=== PATIENT | female | born 2000 | race Two or more races ===

== ENCOUNTER 2024-07-24 05:39 | Emergency (ER) | payer OTHER ==
[~2024-07-24] VITALS: Ht 160 cm; Wt 52.3 kg
[2024-07-24] MEDS: diphenhdrAMINE HCL 50 MG/1 ML VL IM ONE (06:10)
--- NOTE | 2024-07-24 06:10 | ED.PDOC ---
Altered Mental Status HPI Comments 23-year-old female brought in by EMS with unknown PMHx presents with a chief complaint of ALOC secondary to alcohol use. Per EMS, patient was causing a disturbance at home and neighbors called 911. Patient is behaving erratic and had to be restrained by EMS. Patient is yelling out profanities and tried to bite EMS so a spit mask was placed on patient. Patient is uncooperative at this time and combative. No further medical information was not able to be obtained. No other symptoms or modifying factors present at this time. Chief Complaint: ETOH Time Seen by MD: 06:02 Reviewed Notes: Medications, Allergies Information Source: Emergency Med Personnel Mode of Arrival: EMS Severity: Moderate, Unable to Care for Self Timing: Hours Duration: Since onset Prehospital treatment: Restraints Quality: Change in Behavior Recent: None History of: Other (ALCOHOL USE) Past Medical History PAST MEDICAL HISTORY: Unknown, Unobtainable Surgical History: Unknown, Unobtainable LAY OUT CARPENTER History: Unknown, Unobtainable Family History Family History: Unknown, Unobtainable Social History Smoker: Unknown, Unobtainable Alcohol: Heavy Drugs: Unknown, Unobtainable Lives In: Home Constitutional: denies: chills, diaphoresis, fatigue, fever, malaise, sweats, weakness, others EENTM: denies: blurred vision, double vision, ear bleeding, ear discharge, ear drainage, ear pain, ear ringing, eye pain, eye redness, hearing loss, mouth pain, mouth swelling, nasal discharge, nose bleeding, nose congestion, nose pain, photophobia, tearing, throat pain, throat swelling, voice changes, others Respiratory: denies: cough, hemoptysis, orthopnea, SOB at rest, shortness of breath, SOB with excertion, stridor, wheezing, others Cardiovascular: denies: chest pain, dizzy spells, diaphoresis, Dyspnea on exertion, edema, irregular heart beat, left arm pain, lightheadedness, palpitations, PND, syncope, others Gastrointestinal: denies: abdomen distended, abdominal pain, blood streaked bowels, constipated, diarrhea, dysphagia, difficulty swallowing, hematemesis, melena, nausea, poor appetite, poor fluid intake, rectal bleeding, rectal pain, vomiting, others Genitourinary: denies: abnormal vagina bleeding, burning, dyspareunia, dysuria, flank pain, frequency, hematuria, incontinence, pain, , vagina discharge, urgency, others Neurological: denies: dizziness, fainting, headache, left sided numbness, left sided weakness, numbness, paresthesia, pre-existing deficit, right sided numbness, right sided weakness, seizure, speech problems, tingling, tremors, weakness, others Musculoskeletal: denies: back pain, gout, joint pain, joint swelling, muscle pain, muscle stiffness, neck pain, others Integumetry: denies: bruises, change in color, change in hair/nails, dryness, laceration, lesions, lumps, rash, wounds, others Allergic/Immunocompromised: denies: Difficulty Healing, Frequent Infections, Hives, Itching, others Hematologic/Lymphatic: denies: anemia, blood clots, easy bleeding, easy bruising, swollen glands, others Endocrine: denies: excessive hunger, excessive sweating, excessive thirst, excessive urination, flushing, intolerance to cold, intolerance to heat, unexp lained weight gain, unexplained weight loss, others Psychiatric: denies: anxiety, bipolar disorder, depression, hopeless, panic disorder, schizophrenia, sleepless, suicidal, others Unable to Obtain due to: Altered Mental Status (SECONDARY TO ALCOHOL USE) All Other Systems: Reviewed and Negative Physical Exam General Appearance: No Apparent Distress, Normal HEENT: Normal ENT Inspection, Pharynx Normal, TMs Normal Neck: Full Range of Motion, Non-Tender, Normal, Normal Inspection Respiratory: Chest Non-Tender, Lungs Clear, No Accessory Muscle Use, No Respiratory Distress, Normal Breath Sounds Cardiovascular: No Edema, No JVD, No Murmur, No Gallop, Normal Peripheral Pulses, Regular Rate/Rhythm Breast Exam: Deferred Gastrointestinal: No Organomegaly, Non Tender, No Pulsatile Mass, Normal Bowel Sounds, Soft Genitalia: Deferred Pelvic: Deferred Rectal: Deferred Extremities: No calf tenderness, Normal capillary refill, Normal range of motion, No pedal edema, Tender (bilateral hands with multiple bruises, but the left dorsal hand is swollen and tender, with bruising. no redness. no deformities) Musculoskeletal : Apperance: Normal Neurologic: Alert, armed security guard II-XII nml as Tested, No Motor Deficits, Normal Affect, Normal Mood, No Sensory Deficits Cerebellar Function: Normal Reflexes: Normal Skin: Dry, Normal Color, Warm Lymphatic: No Adenopathy Was a procedure done? Was a procedure done?: No Differential Diagnosis (ALOC) Differential Diagnosis: Dehydration, Hypoglycemia, DKA, Hypoxemia, Seizure, Closed Head Injury, Drug Overdose, ETOH Intoxication X-Ray, Labs, Meds, VS Vital Signs Date Time Temp Pulse Resp B/P (MAP) Pulse Ox O2 Delivery O2 Flow Rate FiO2 07/24/24 14:00 75 18 126/98 (107) 95 07/24/24 12:00 68 21 101/59 (73) 97 07/24/24 10:30 50 14 95 Room Air* 0 21 07/24/24 09:58 51 14 109/73 (85) 96 07/24/24 07:15 52 13 96 07/24/24 05:45 98.2 102 24 150/76 (100) 98 Lab Test 07/24/24 12:45 07/24/24 09:29 07/24/24 06:24 Range/Units Urine Color Light-yellow Yellow Urine Clarity Ex.turbid Clear Urine pH 5.5 5.0-9.0 Urine Specific Sharon 1.023 1.001-1.035 Urine Protein Trace H Negative Urine Ketones 1+ H Negative Urine Blood 3+ H Negative /uL Urine Nitrite Negative Negative Urine Bilirubin Negative Negative Urine Urobilinogen Normal Negative mg/dL Urine Leukocyte Esterase Negative Negative /uL Urine RBC 3 0 - 4 /hpf Urine WBC None seen 0 - 5 /hpf Urine Squamous Epithelial Cells Few <5 /hpf Urine Bacteria None seen None Seen /hpf Urine Mucus Few None Seen Urine Glucose Normal Normal mg/dL Urine Opiates Screen Neg NEGATIVE Urine Fentanyl Screen Neg NEGATIVE Urine Barbiturates Screen Neg NEGATIVE Urine Phencyclidine Screen Neg NEGATIVE Urine Amphetamines Screen Neg NEGATIVE Urine Benzodiazepines Screen Neg NEGATIVE Urine Cocaine Screen Pos NEGATIVE Urine Cannabinoids Screen Pos NEGATIVE White Blood Count 17.3 H 18.0 H 4.4-10.8 10^3/uL Red Blood Count 3.97 L 4.18 4.0-5.20 10^6/uL Hemoglobin 12.8 13.2 12.2-16.2 g/dL Hematocrit 38.1 39.3 36.0-46.0 % Mean Corpuscular Volume 95.8 94.2 80.0-100.0 fL Mean Corpuscular Hemoglobin 32.3 H 31.5 28.0-32.0 pg Mean Corpuscular Hemoglobin Concent 33.7 33.5 32.0-36.0 g/dL Red Cell Distribution Width 12.5 12.4 11.8-14.3 % Platelet Count 297 327 140-450 10^3/uL Mean Platelet Volume 8.6 8.6 6.9-10.8 fL Neutrophils (%) (Auto) 87.7 H 92.1 H 37.0-80.0 % Lymphocytes (%) (Auto) 8.1 L 4.2 L 10.0-50.0 % Monocytes (%) (Auto) 4.1 3.5 0.0-12.0 % Eosinophils (%) (Auto) 0.0 0.0 0.0-7.0 % Basophils (%) (Auto) 0.1 0.2 0.0-2.0 % Neutrophils # (Auto) 15.2 H 16.6 H 1.6-8.6 10 ^3/uL Lymphocytes # (Auto) 1.4 0.8 0.4-5.4 10 ^3/uL Monocytes # (Auto) 0.7 0.6 0-1.3 10 ^3/uL Eosinophils # (Auto) 0 0 0-0.8 10 ^3/uL Basophils # (Auto) 0 0 0-0.2 10 ^3/uL Nucleated Red Blood Cells 0.0 0.0 % Sodium Level 145 136-145 mmol/L Potassium Level 3.5 3.5-5.1 mmol/L Chloride Level 108 H 98-107 mmol/L Carbon Dioxide Level 19 L 20-31 mmol/L Anion Gap 18 H 5-15 Blood Urea Nitrogen 15 9-23 mg/dL Creatinine 1.01 0.550-1.02 mg/dL Glomerular Filtration Rate Calc 81 >90 mL/min BUN/Creatinine Ratio 14.9 10.0-20.0 Serum Glucose 77 74-106 mg/dL Calcium Level 10.4 8.7-10.4 mg/dL Beta HCG, Quantitative 0.3 L 1.5-4.2 mIU/mL Plasma/Serum Blood Alcohol 178.2 H <10 mg/dL Current Medications Medications (Trade) Dose Ordered Sig/Cisco Route Start Time Stop Time Status Last Admin Lorazepam (Ativan Inj) 2 mg ONCE ONCE IM 07/24/24 06:00 07/24/24 06:01 DC 07/24/24 06:12 Haloperidol Lactate (Haldol) 5 mg ONCE ONCE IM 07/24/24 06:00 07/24/24 06:01 DC 07/24/24 06:11 Diphenhydramine HCl (Benadryl Injection) 50 mg ONCE ONCE IM 07/24/24 06:00 07/24/24 06:01 DC 07/24/24 06:10 Sodium Chloride 1,000 ml @ 1,000 mls/hr Q1H ONCE IV 07/24/24 07:30 07/24/24 08:29 DC 07/24/24 11:03 Time of 1ST Reevaluation: 06:32 Reevaluation 1ST: Unchanged Time of 2ND Reevaluation: 12:35 Reevaluation 2ND: Improved Time of 3RD Reevaluation: 12:35 Reevaluation 3RD: Improved (pt ia alert, calm awake, having a sandwich, sitting up and will call family to pick her up) Patient Education/Counseling: Diagnosis, Treatment, Prognosis, Need For Follow Up Family Education/Counseling: Diagnosis, Treatment, Prognosis, Need For Follow Up Comments The following tests were ordered, and results were reviewed by me: CBC, BMP, UA, Drug Screen, Beta HCG Additional Information was gathered from interviewing the following independent historians: Information was gathered from the Live Truck Technician that brought patient in. I reviewed and agreed with the following test results read by other providers: I discussed treatment and results with medical personnel and: Family Additional Information pt was highly agitated, combative, inebriated. she has been calmer. the leukocytosis is likely due to demargination. there are no sources of any infections. she is stable for discharge. family is at bedside Departure 1 Departure Time of Disposition: 12:36 Impression: Primary Impression: Alcohol intoxication Qualified Codes: F10.920 - Alcohol use, unspecified with intoxication, uncomplicated Additional Impressions: Leukocytosis Qualified Codes: D72.829 - Elevated white blood cell count, unspecified Contusion of left hand Qualified Codes: S60.222A - Contusion of left hand, initial encounter Disposition: HOME / SELF CARE / HOMELESS Condition: Good Critical Care Note Critical Care Time?: Yes (55 min-critical care time only) Critical care comment: Due to concerns for patients condition deteriorating, the care required my highest level of attention and readiness to intervene. I assessed the patient, reviewed the medical records, ordered the appropriate tests and treatments, then reassessed for results and responsiveness. I communicated with medical personnel and consultants and formulated a plan of care. Total critical care time excludes any procedures Stability Stability form required: No I personally scribed for DIPESH BENTLEY MD [email or web address] on 07/24/24 at 06:10. Electronically submitted by Kee Roque ([email or web address]). I personally scribed for DIPESH BENTLEY MD ([email or web address]) on 07/24/24 at 06:13. Electronically submitted by Kee Roque ([email or web address]). I personally scribed for DIPESH BENTLEY MD ([email or web address]) on 07/24/24 at 06:17. Electronically submitted by Kee Roque ([email or web address]). DIPESH BENTLEY MD Jul 24, 2024 06:10
[2024-07-24] MEDS: HALOPERIDOL LACTATE 5 MG/ML INJ VIAL IM ONE (06:11)
[2024-07-24] MEDS: LORazepam 2MG/ML-1ML VIAL IM ONE (06:12)
[2024-07-24 06:54] LABS: Basophils # (auto) 0 10 ^3/uL (0-0.2); Basophils % (auto) 0.2 % (0.0-2.0); Eosinophils # (auto) 0 10 ^3/uL (0-0.8); Hematocrit 39.3 % (36.0-46.0); Hemoglobin 13.2 g/dL (12.2-16.2); Lymphocytes # (auto) 0.8 10 ^3/uL (0.4-5.4); Lymphocytes % (auto) 4.2 % (10.0-50.0); Mean Corpuscular Hemoglobin 31.5 pg (28.0-32.0); Mean Corpuscular Hgb Conc. 33.5 g/dL (32.0-36.0); Mean Corpuscular Volume 94.2 fL (80.0-100.0); Monocytes # (auto) 0.6 10 ^3/uL (0-1.3); Monocytes % (auto) 3.5 % (0.0-12.0); Neutrophils # (auto) 16.6 10 ^3/uL (1.6-8.6); Neutrophils % (auto) 92.1 % (37.0-80.0); Platelet Count (auto) 327 10^3/uL (140-450); Red Blood Cells 4.18 10^6/uL (4.0-5.20); Red Cell Distribution Width 12.4 % (11.8-14.3)
[2024-07-24 07:03] LABS: Sodium 145 mmol/L (136-145)
[2024-07-24 07:04] LABS: Anion Gap 18 (5-15); Calcium 10.4 mg/dL (8.7-10.4)
[2024-07-24 07:09] LABS: BUN/Creatinine Ratio 14.9 (10.0-20.0); Blood Alcohol 178.2 mg/dL (<10); Blood Urea Nitrogen 15 mg/dL (9-23); Glucose 77 mg/dL (74-106)
[2024-07-24 07:10] LABS: Carbon Dioxide 19 mmol/L (20-31); Chloride 108 mmol/L (98-107); Potassium 3.5 mmol/L (3.5-5.1)
[2024-07-24 09:55] LABS: Basophils # (auto) 0 10 ^3/uL (0-0.2); Basophils % (auto) 0.1 % (0.0-2.0); Eosinophils # (auto) 0 10 ^3/uL (0-0.8); Hematocrit 38.1 % (36.0-46.0); Hemoglobin 12.8 g/dL (12.2-16.2); Lymphocytes # (auto) 1.4 10 ^3/uL (0.4-5.4); Lymphocytes % (auto) 8.1 % (10.0-50.0); Mean Corpuscular Hemoglobin 32.3 pg (28.0-32.0); Mean Corpuscular Hgb Conc. 33.7 g/dL (32.0-36.0); Mean Corpuscular Volume 95.8 fL (80.0-100.0); Monocytes # (auto) 0.7 10 ^3/uL (0-1.3); Monocytes % (auto) 4.1 % (0.0-12.0); Neutrophils # (auto) 15.2 10 ^3/uL (1.6-8.6); Neutrophils % (auto) 87.7 % (37.0-80.0); Platelet Count (auto) 297 10^3/uL (140-450); Red Blood Cells 3.97 10^6/uL (4.0-5.20); Red Cell Distribution Width 12.5 % (11.8-14.3); White Blood Cell 17.3 10^3/uL (4.4-10.8)
[2024-07-24 10:30] VITALS: PULSE 50; RESP 14; O2SAT 95
[2024-07-24] MEDS: SODIUM CHLORIDE 0.9% 1,000 ML IV ONE (11:03)
--- NOTE | 2024-07-24 11:08 | DVH ---
XY CHEST PORTABLE, HISTORY: leukocytosis COMPARISON: None None TECHNICAL DATA: 1 view of the chest was obtained. FINDINGS: Lines and tubes: None Cardiomediastinal silhouette: normal Pulmonary vasculature: normal Lung expansion: normal Lung airspace: normal Lung interstitium: normal Pleura: normal Pneumothorax: no Bones: Unremarkable Other: no IMPRESSION: No acute intrathoracic abnormality.
[2024-07-24 12:55] LABS: Urine Bacteria None Seen /hpf (None Seen); Urine WBC None Seen /hpf (0 - 5)
[2024-07-24 13:13] LABS: Urine Blood 3+ /uL (Negative); Urine Clarity Ex.Turbid (Clear); Urine Color Light-Yellow (Yellow); Urine Mucus FEW (None Seen); Urine Protein, UAD TRACE (Negative); Urine Specific Gravity 1.023 (1.001-1.035); Urine Squamous Epithelial Cell FEW /hpf (<5); Urine Urobilinogen Normal (Negative); Urine pH 5.5 (5.0-9.0)
[2024-07-24 13:35] LABS: Cannabinoid Screen, Urine Pos (NEGATIVE)
[2024-07-24 13:46] LABS: Amphetamine Screen, Urine Neg (NEGATIVE); Barbiturate Scree,Urine Neg (NEGATIVE); Benzodiazephine Screen, Urine Neg (NEGATIVE); Cocaine Screen, Urine Pos (NEGATIVE); Opiate Scree,Urine Neg (NEGATIVE); Phencyclidine Screen, Urine Neg (NEGATIVE)
[2024-07-24 14:00] VITALS: BP 126/98; PULSE 75; RESP 18; O2SAT 95
--- NOTE | 2024-07-24 15:17 | DVH ---
EXAM: XY L HAND 3V XRAY CLINICAL INDICATION: injury TECHNIQUE: XY L HAND 3V XRAY Comparison: None FINDINGS/IMPRESSION: There is no evidence of acute fracture or dislocation. The visualized joint space is well maintained. The alignment is anatomical. There is no radiopaque foreign body.
== END 2024-07-24 15:55 | disposition home or self-care (01) ==
LOC: EDBD 05:39 → ER 05:39
DX: S60.222A Contusion of left hand, initial encounter (principal); F10.129 Alcohol abuse with intoxication, unspecified; D72.829 Elevated white blood cell count, unspecified; Z79.899 Other long term (current) drug therapy; X58.XXXA Exposure to other specified factors, initial encounter; Y93.89 Activity, other specified; Y92.89 Other specified places as the place of occurrence of the external cause; Y99.8 Other external cause status
CPT/HCPCS: 36415; 71045; 73130; 80048; 80307; 80320; 81001; 84702; 85025; 96360; 96361; 96372; 99285; J1200; J1630; J2060; J7030